=== PATIENT | female | born 1935 | race Two or more races ===

== ENCOUNTER 2022-01-10 19:58 | Emergency (ER) | payer OTHER ==
[~2022-01-10] VITALS: Ht 152.4 cm; Wt 45.4 kg
--- NOTE | 2022-01-10 20:34 | NUR ---
TO ER BED 13. [id number] FROM [facility] C/O R LOWER BACK AND HIP PAIN. PT HAD UNWITNESSED FALL. STATES" I FALL EVERY DAY". RATES PAIN 1/10 ON P/S. TOOK TYLENOL WITH LITTLE RELIEF. CONNECTED TO MONITOR. AWAITING MD MCLAUGHLIN
--- NOTE | 2022-01-10 20:47 | NUR ---
IV LINE ESTABLISHED, RAC 20G
[2022-01-10] MEDS ORDERED: ACETAMINOPHEN 325 MG TABLET ONE (22:54)
[2022-01-10] MEDS ORDERED: ACETAMINOPHEN 325 MG TABLET PO ONE (23:00)
--- NOTE | 2022-01-10 23:00 | NUR ---
Patient discharged to home in stable condition. Written and verbal after care instructions given. Patient verbalizes understanding of instruction.
--- NOTE | 2022-01-10 23:03 | NUR ---
CALLED [facility] AND SPOKE WITH ALEX. ARRANGED BLS TRANSPORT FOR PT TO [facility]. ETA IS 35 MIN
--- NOTE | 2022-01-10 23:10 | NUR ---
SPOKE WITH DM [facility]. Addendum: 01/10/22 at 2311 by MICHELLE GAVE REPORT*
--- NOTE | 2022-01-10 23:35 | NUR ---
REPORT GIVEN TO [facility]. PT D/C TO [facility] VIA AMBULANCE. VSS. IV DC/ED. NO ACTIVE BLEEDING NOTED.
[2022-01-10 23:38] VITALS: BP 121/65
== END 2022-01-10 23:38 ==
LOC: ER 20:00
DX: S32.018A Other fracture of first lumbar vertebra, initial encounter for closed fracture (principal); S22.088A Other fracture of T11-T12 vertebra, initial encounter for closed fracture; S00.83XA Contusion of other part of head, initial encounter; Z86.69 Personal history of other diseases of the nervous system and sense organs; Z96.642 Presence of left artificial hip joint; Z88.0 Allergy status to penicillin; W18.30XA Fall on same level, unspecified, initial encounter; Y93.89 Activity, other specified; Y92.099 Unspecified place in other non-institutional residence as the place of occurrence of the external cause; Y99.8 Other external cause status
CPT/HCPCS: 70450-TC; 72125-TC; 72131-TC

== ENCOUNTER 2024-07-11 07:39 | Emergency (ER) | payer OTHER ==
[~2024-07-11] VITALS: Ht 152.4 cm; Wt 47.6 kg
[2024-07-11 12:27] VITALS: BP 136/84; TEMP 98.6; O2SAT 99
== END 2024-07-11 12:29 ==
LOC: ER 07:43
DX: S00.83XA Contusion of other part of head, initial encounter (principal); F02.80 Dementia in other diseases classified elsewhere, unspecified severity, without behavioral disturbance, psychotic disturbance, mood disturbance, and anxiety; G20.A1 Parkinson's disease without dyskinesia, without mention of fluctuations; Z88.0 Allergy status to penicillin; Z86.69 Personal history of other diseases of the nervous system and sense organs; W18.39XA Other fall on same level, initial encounter; Y93.89 Activity, other specified; Y92.89 Other specified places as the place of occurrence of the external cause; Y99.8 Other external cause status
CPT/HCPCS: 70450-TC; 71045-TC; 72125-TC; 72170-TC